=== PATIENT | female | born 1930 | race Caucasian/White ===

== ENCOUNTER 2017-12-29 05:02 | Inpatient (IN) | payer OTHER, MEDICAID ==
[~2017-12-29] VITALS: Ht 137.2 cm; Wt 43.5 kg
[2017-12-29 05:02] VITALS: BP_SYST 139
[2017-12-29] MEDS ORDERED: NACL 0.9% 1,000 ML IV ONE (05:15)
[2017-12-29 05:24] LABS: BASOPHILS # (AUTO) 0.1 K/uL (0.0-0.2); BASOPHILS % (AUTO) 0.9 % (0.0-2.0); EOSINOPHILS % (AUTO) 0.7 % (0.0-4.0); HEMATOCRIT 32.1 % (36-48); HEMOGLOBIN 10.8 g/dL (12.0-16.0); LYMPHOCYTES # (AUTO) 1.2 K/uL (1.0-5.5); LYMPHOCYTES % (AUTO) 20.2 % (20.5-51.5); MEAN CORPUSCULAR HEMOGLOBIN 28 pg (27-31); MEAN CORPUSCULAR HGB CONC 34 % (32-36); MEAN CORPUSCULAR VOLUME 83 fL (79.0-98.0); MONOCYTES # (AUTO) 0.5 K/uL (0.0-1.0); MONOCYTES % (AUTO) 8.8 % (1.7-9.3); NEUTROPHILS # (AUTO) 4.2 K/uL (1.8-7.7); NEUTROPHILS % (AUTO) 69.4 % (40.0-70.0); PLATELET COUNT (AUTO) 349 K/uL (130-430); RED BLOOD CELL COUNT(AUTO) 3.87 MIL/uL (4.2-6.2); RED CELL DISTRIBUTION WIDTH 14.4 % (9.0-15.0); WHITE BLOOD COUNT (AUTO) 6.1 K/uL (4.8-10.8)
[2017-12-29] MEDS ORDERED: DIME50TA35 PO (05:28)
[2017-12-29] MEDS ORDERED: PRED5TAB PO (05:28)
[2017-12-29] MEDS ORDERED: TRAM50TA92 PO (05:28)
[2017-12-29] MEDS ORDERED: PRO40 PO (05:28)
[2017-12-29] MEDS ORDERED: LORA-258 PO (05:28)
[2017-12-29] MEDS ORDERED: LOSA50TA3 PO (05:28)
[2017-12-29 05:36] LABS: ANION GAP 4 (5-15); CALCIUM 10.4 mg/dL (8.4-11.0); CHLORIDE 105 mmol/L (98-107); CREATININE 0.89 mg/dL (0.55-1.30); GLUCOSE 139 mg/dL (70-99); POTASSIUM 3.5 mmol/L (3.5-5.1); SODIUM SERUM 134 mmol/L (136-145); UREA NITROGEN, BLOOD 15 mg/dL (8-21)
[2017-12-29 05:41] LABS: ALANINE AMINOTRANSFERASE 19 U/L (12-78); ALBUMIN 2.8 g/dL (3.4-4.8); ASPARTATE AMINOTRANSFERASE 22 U/L (10-37); TOTAL BILIRUBIN 0.4 mg/dL (0.0-1.0)
[2017-12-29 05:42] LABS: ALCOHOL, BLOOD < 3 mg/dL (<10)
[2017-12-29 05:58] LABS: BILIRUBIN,URINE NEGATIVE (NEGATIVE); BLOOD, URINE NEGATIVE (NEGATIVE); CLARITY/URINE CLEAR (CLEAR); COLOR,URINE YELLOW (YELLOW); GLUCOSE,URINE NEGATIVE (NEGATIVE); KETONES,URINE NEGATIVE (NEGATIVE); LEUKOCYTE ESTERASE ,URINE TRACE (NEGATIVE); NITRITE, URINE NEGATIVE (NEGATIVE); PROTEIN URINE NEGATIVE (NEGATIVE); UROBILINOGEN,URINE 0.2 (0.2-1.0)
[2017-12-29 06:10] LABS: BARBITURATE, URINE NEGATIVE (NEG <=200); BENZODIAZEPINE, URINE NEGATIVE (NEG <=150); CANNABINOID, URINE NEGATIVE (NEG <=50); COCAINE, URINE NEGATIVE (NEG <=150); METHAMPHETAMINES SCREEN,URINE NEGATIVE (NEG <=500); OPIATE, URINE NEGATIVE (NEG <=100); PHENCYCLIDINE SCREEN,URINE NEGATIVE (NEG <=25); UR TRICYCLIC ANTIDEPRESSANTS NEGATIVE (NEG <=300); URINE AMPHETAMINE NEGATIVE (NEG <=500); URINE METHADONE NEGATIVE (NEG <=200); URINE OXYCODONE SCREEN NEGATIVE (NEG <=100); URINE PROPOXYPHENE SCREEN NEGATIVE (NEG <=300)
[2017-12-29 06:14] LABS: BACTERIA,URINE FEW /HPF (None Seen); MUCUS,URINE None Seen /LPF (None Seen); RBC,URINE 0-3 /HPF (0-3)
[2017-12-29] MEDS ORDERED: PIPERACILLIN/TAZO 3.375 GM in NS 50 ML IV ONE (07:15)
[2017-12-29] MEDS ORDERED: PIPERACILLIN/TAZOBACTAM 3.375 GM/VIAL (ZOSYN) IV ONE (07:23)
[2017-12-29] MEDS ORDERED: DILTIAZEM HCL 25 MG/5 ML VIAL IVP ONE (07:30)
[2017-12-29 08:44] VITALS: BP_SYST 142
[2017-12-29] MEDS ORDERED: *LOVENOX 1MG/KG Q24H/PHARMACY XX PRN (10:30)
[2017-12-29] MEDS ORDERED: CARVEDILOL 6.25 MG TABLET (COREG) PO ONE (10:45)
[2017-12-29 10:58] LABS: FREE T4 (FREE THYROXINE) 3.1 ng/dL (0.6-1.6); THYROID STIMULATING HORMONE < 0.01 uIu/mL (0.34-4.82)
[2017-12-29] MEDS ORDERED: ENOXAPARIN SODIUM 60 MG/0.6 ML SYRINGE SUBCUT ONE (11:00)
[2017-12-29 12:30] VITALS: BP_SYST 128
[2017-12-29] MEDS ORDERED: QUEtiapine FUMARATE 25 MG TABLET PO ONE (15:30)
[2017-12-29 16:00] VITALS: BP_SYST 172
[2017-12-29] MEDS ORDERED: LORazepam 2 MG/ML VIAL IVP PRN (17:15)
[2017-12-29] MEDS ORDERED: traMADol HCL HCL 50 MG TABLET (ULTRAM) PO PRN (18:15)
[2017-12-29] MEDS ORDERED: cloNIDine HCL 0.1 MG TABLET PO PRN (18:15)
[2017-12-29] MEDS ORDERED: HALOPERIDOL LACTATE 5 MG/ML VIAL IM PRN (18:30)
[2017-12-29] MEDS ORDERED: cloNIDine HCL 0.1 MG TABLET ONE (18:43)
[2017-12-29] MEDS ORDERED: HALOPERIDOL 1 MG TABLET (HALDOL) PO PRN (19:00)
[2017-12-29 20:00] VITALS: BP_SYST 142
[2017-12-29] MEDS ORDERED: DIMENHYDRINATE 25 MG PO SCH (21:00)
[2017-12-29] MEDS ORDERED: PREDNISONE 5 MG TABLET PO SCH (21:00)
[2017-12-29] MEDS: QUEtiapine FUMARATE 25 MG TABLET PO SCH (21:13)
[2017-12-29] MEDS: CARVEDILOL 6.25 MG TABLET (COREG) PO SCH (21:14)
[2017-12-29] MEDS: methylPREDNISolone SOD SUCC 40 MG/ML VIAL IVP SCH (21:15)
[2017-12-30] VITALS: BP_SYST 151
[2017-12-30] MEDS: LevALBUTEROL HCL 1.25 MG/0.5 ML *CONC.* VIAL.NEB (XOPENEX CONC.) INH SCH ×4 (01:21→19:59)
[2017-12-30 01:29] VITALS: BP_SYST 142
[2017-12-30] MEDS: methylPREDNISolone SOD SUCC 40 MG/ML VIAL IVP SCH ×3 (06:06→21:34)
[2017-12-30 07:14] LABS: BASOPHILS % (AUTO) 0.5 % (0.0-2.0); EOSINOPHILS % (AUTO) 0.5 % (0.0-4.0); HEMATOCRIT 29.6 % (36-48); LYMPHOCYTES # (AUTO) 1.1 K/uL (1.0-5.5); MEAN CORPUSCULAR HEMOGLOBIN 28 pg (27-31); MEAN CORPUSCULAR HGB CONC 34 % (32-36); MEAN CORPUSCULAR VOLUME 84 fL (79.0-98.0); MONOCYTES # (AUTO) 0.7 K/uL (0.0-1.0); MONOCYTES % (AUTO) 10.1 % (1.7-9.3); NEUTROPHILS # (AUTO) 4.8 K/uL (1.8-7.7); NEUTROPHILS % (AUTO) 71.9 % (40.0-70.0); PLATELET COUNT (AUTO) 274 K/uL (130-430); RED BLOOD CELL COUNT(AUTO) 3.52 MIL/uL (4.2-6.2); RED CELL DISTRIBUTION WIDTH 14.2 % (9.0-15.0); WHITE BLOOD COUNT (AUTO) 6.6 K/uL (4.8-10.8)
[2017-12-30 07:48] LABS: ALANINE AMINOTRANSFERASE 15 U/L (12-78); ALBUMIN 2.3 g/dL (3.4-4.8); ANION GAP 8 (5-15); ASPARTATE AMINOTRANSFERASE 21 U/L (10-37); CALCIUM 10.2 mg/dL (8.4-11.0); CHLORIDE 109 mmol/L (98-107); CREATININE 0.65 mg/dL (0.55-1.30); GLUCOSE 106 mg/dL (70-99); POTASSIUM 3.5 mmol/L (3.5-5.1); SODIUM SERUM 140 mmol/L (136-145); THYROID STIMULATING HORMONE < 0.01 uIu/mL (0.34-4.82); TOTAL BILIRUBIN 0.5 mg/dL (0.0-1.0); UREA NITROGEN, BLOOD 13 mg/dL (8-21)
[2017-12-30 08:00] VITALS: BP_SYST 160
[2017-12-30] MEDS ORDERED: ENOXAPARIN SODIUM 60 MG/0.6 ML SYRINGE SUBCUT SCH (09:00)
[2017-12-30] MEDS: CARVEDILOL 6.25 MG TABLET (COREG) PO SCH ×2 (09:22→21:33)
[2017-12-30] MEDS: PANTOPRAZOLE SODIUM 40 MG TAB PO SCH (09:23)
[2017-12-30] MEDS: LOSARTAN POTASSIUM 50 MG TABLET (COZAAR) PO SCH (09:23)
[2017-12-30] MEDS ORDERED: AMOXICILLIN/CLAVULANATE POTASSIUM 875 MG TABLET PO ONE (10:45)
[2017-12-30 12:05] VITALS: BP_SYST 127
[2017-12-30] MEDS: METHIMAZOLE 5 MG TABLET PO SCH ×2 (15:14→21:34)
[2017-12-30 16:05] VITALS: BP_SYST 152
[2017-12-30 20:00] VITALS: BP_SYST 155
[2017-12-30] MEDS: AMOXICILLIN/CLAVULANATE POTASSIUM 875 MG TABLET PO SCH (21:29)
[2017-12-30] MEDS ORDERED: ACETAMINOPHEN 325 MG TABLET PO PRN (21:30)
[2017-12-30] MEDS: QUEtiapine FUMARATE 25 MG TABLET PO SCH (21:33)
[2017-12-31 00:34] VITALS: BP_SYST 156
[2017-12-31] MEDS: LevALBUTEROL HCL 1.25 MG/0.5 ML *CONC.* VIAL.NEB (XOPENEX CONC.) INH SCH ×4 (01:00→20:02)
[2017-12-31] MEDS: methylPREDNISolone SOD SUCC 40 MG/ML VIAL IVP SCH (05:20)
[2017-12-31 07:13] LABS: ANION GAP 14 (5-15); CHLORIDE 102 mmol/L (98-107); CREATININE 0.73 mg/dL (0.55-1.30); GLUCOSE 204 mg/dL (70-99); POTASSIUM 3.8 mmol/L (3.5-5.1); SODIUM SERUM 139 mmol/L (136-145); UREA NITROGEN, BLOOD 16 mg/dL (8-21)
[2017-12-31 07:15] LABS: BASOPHILS % (AUTO) 0.3 % (0.0-2.0); EOSINOPHILS % (AUTO) 0.1 % (0.0-4.0); HEMATOCRIT 33.9 % (36-48); HEMOGLOBIN 11.1 g/dL (12.0-16.0); LYMPHOCYTES # (AUTO) 0.5 K/uL (1.0-5.5); LYMPHOCYTES % (AUTO) 8.9 % (20.5-51.5); MEAN CORPUSCULAR HEMOGLOBIN 28 pg (27-31); MEAN CORPUSCULAR HGB CONC 33 % (32-36); MEAN CORPUSCULAR VOLUME 84 fL (79.0-98.0); MONOCYTES # (AUTO) 0.1 K/uL (0.0-1.0); MONOCYTES % (AUTO) 1.3 % (1.7-9.3); NEUTROPHILS # (AUTO) 4.5 K/uL (1.8-7.7); NEUTROPHILS % (AUTO) 89.4 % (40.0-70.0); PLATELET COUNT (AUTO) 347 K/uL (130-430); RED BLOOD CELL COUNT(AUTO) 4.03 MIL/uL (4.2-6.2); RED CELL DISTRIBUTION WIDTH 14.1 % (9.0-15.0); WHITE BLOOD COUNT (AUTO) 5.1 K/uL (4.8-10.8)
[2017-12-31 07:55] VITALS: BP_SYST 159
[2017-12-31] MEDS ORDERED: CARVEDILOL 6.25 MG TABLET (COREG) PO ONE (09:30)
[2017-12-31] MEDS ORDERED: ASPIRIN 81 MG TAB.CHEW PO ONE (09:30)
[2017-12-31] MEDS: AMOXICILLIN/CLAVULANATE POTASSIUM 875 MG TABLET PO SCH ×2 (09:36→20:20)
[2017-12-31] MEDS: LOSARTAN POTASSIUM 50 MG TABLET (COZAAR) PO SCH (09:36)
[2017-12-31] MEDS: PANTOPRAZOLE SODIUM 40 MG TAB PO SCH (09:36)
[2017-12-31] MEDS ORDERED: LIDOCAINE 1% 10 MG/ML, 50 ML MDV INJ ONE (10:00)
[2017-12-31] MEDS ORDERED: LIDOCAINE 1%, 20 ML MDV 0 ML ONE (11:25)
[2017-12-31] MEDS: METHIMAZOLE 5 MG TABLET PO SCH ×2 (12:17→20:23)
[2017-12-31 16:05] VITALS: BP_SYST 149
[2017-12-31 16:07] LABS: TOTAL IRON BIND. CAPACITY 278 ug/dL (250-450)
[2017-12-31 19:42] VITALS: BP_SYST 150
[2017-12-31] MEDS: QUEtiapine FUMARATE 25 MG TABLET PO SCH (20:21)
[2017-12-31] MEDS: CARVEDILOL 6.25 MG TABLET (COREG) PO SCH (20:23)
[2018-01-01 00:06] LABS: BODY FLUID SOURCE/ TYPE PLEURAL; SOURCE/TYPE ,BODY FLUID PLEURAL
[2018-01-01 00:07] LABS: APPEARANCE,SPUN,BODY FLUID CLEAR (CLEAR); BF APPEARANCE UNSPUN BLOODY (CLEAR); BODY FLUID COLOR RED (LT YELLOW); BODY FLUID TOTAL VOLUME 470 mL; WBC, BODY FLUID 37 /uL
[2018-01-01 00:08] LABS: EOSINOPHIL, BODY FLUID 0 %; LYMPHOCYTES, BODY FLUID 35 %; MONOCYTES,BODY FLUID 50 %; NEUTROPHIL, BODY FLUID 15 %; RBC, BODY FLUID 16667 /uL
[2018-01-01 00:11] LABS: BODY FLUID GLUCOSE 229 mg/dL
[2018-01-01 00:12] LABS: BODY FLUID TOTAL PROTEIN 3.8 g/dL
[2018-01-01 00:42] VITALS: BP_SYST 133
[2018-01-01] MEDS: LevALBUTEROL HCL 1.25 MG/0.5 ML *CONC.* VIAL.NEB (XOPENEX CONC.) INH SCH ×4 (01:20→19:32)
[2018-01-01 06:59] LABS: BASOPHILS % (AUTO) 0.2 % (0.0-2.0); EOSINOPHILS % (AUTO) 0.1 % (0.0-4.0); HEMATOCRIT 30.3 % (36-48); HEMOGLOBIN 10.2 g/dL (12.0-16.0); LYMPHOCYTES % (AUTO) 11.2 % (20.5-51.5); MEAN CORPUSCULAR HEMOGLOBIN 28 pg (27-31); MEAN CORPUSCULAR HGB CONC 34 % (32-36); MEAN CORPUSCULAR VOLUME 83 fL (79.0-98.0); MONOCYTES # (AUTO) 0.6 K/uL (0.0-1.0); MONOCYTES % (AUTO) 6.6 % (1.7-9.3); NEUTROPHILS # (AUTO) 7.6 K/uL (1.8-7.7); NEUTROPHILS % (AUTO) 81.9 % (40.0-70.0); PLATELET COUNT (AUTO) 299 K/uL (130-430); RED BLOOD CELL COUNT(AUTO) 3.64 MIL/uL (4.2-6.2); RED CELL DISTRIBUTION WIDTH 14.1 % (9.0-15.0); WHITE BLOOD COUNT (AUTO) 9.2 K/uL (4.8-10.8)
[2018-01-01 07:21] LABS: ANION GAP 7 (5-15); CALCIUM 9.6 mg/dL (8.4-11.0); CHLORIDE 110 mmol/L (98-107); CREATININE 0.61 mg/dL (0.55-1.30); FREE T4 (FREE THYROXINE) 3.1 ng/dL (0.6-1.6); GLUCOSE 102 mg/dL (70-99); POTASSIUM 3.3 mmol/L (3.5-5.1); SODIUM SERUM 142 mmol/L (136-145); UREA NITROGEN, BLOOD 18 mg/dL (8-21)
[2018-01-01 08:00] VITALS: BP_SYST 137
[2018-01-01] MEDS: AMOXICILLIN/CLAVULANATE POTASSIUM 875 MG TABLET PO SCH ×2 (09:02→20:51)
[2018-01-01] MEDS: ASPIRIN 81 MG TAB.CHEW PO SCH (09:03)
[2018-01-01] MEDS: PANTOPRAZOLE SODIUM 40 MG TAB PO SCH (09:03)
[2018-01-01] MEDS: LOSARTAN POTASSIUM 50 MG TABLET (COZAAR) PO SCH (09:04)
[2018-01-01] MEDS: METHIMAZOLE 5 MG TABLET PO SCH (09:04)
[2018-01-01] MEDS: CARVEDILOL 6.25 MG TABLET (COREG) PO SCH ×2 (09:06→20:50)
[2018-01-01 12:11] LABS: FOLATE (FOLIC ACID) 6.8 ng/mL (>3.0)
[2018-01-01] MEDS ORDERED: POTASSIUM CHLORIDE 20 MEQ TAB.PRT.SR PO ONE (12:45)
[2018-01-01 12:58] VITALS: BP_SYST 113
[2018-01-01 17:04] VITALS: BP_SYST 122
[2018-01-01 19:25] VITALS: BP_SYST 129
[2018-01-01] MEDS: QUEtiapine FUMARATE 25 MG TABLET PO SCH (20:51)
[2018-01-02 00:20] VITALS: BP_SYST 113
[2018-01-02] MEDS: LevALBUTEROL HCL 1.25 MG/0.5 ML *CONC.* VIAL.NEB (XOPENEX CONC.) INH SCH ×3 (01:30→13:00)
[2018-01-02 07:13] VITALS: BP_SYST 113
[2018-01-02 07:18] LABS: BASOPHILS % (AUTO) 0.3 % (0.0-2.0); EOSINOPHILS # (AUTO) 0.1 K/uL (0.0-0.4); EOSINOPHILS % (AUTO) 1.7 % (0.0-4.0); HEMOGLOBIN 10.2 g/dL (12.0-16.0); LYMPHOCYTES # (AUTO) 1.4 K/uL (1.0-5.5); LYMPHOCYTES % (AUTO) 26.4 % (20.5-51.5); MEAN CORPUSCULAR HEMOGLOBIN 28 pg (27-31); MEAN CORPUSCULAR HGB CONC 33 % (32-36); MEAN CORPUSCULAR VOLUME 85 fL (79.0-98.0); MONOCYTES # (AUTO) 0.7 K/uL (0.0-1.0); MONOCYTES % (AUTO) 13.3 % (1.7-9.3); NEUTROPHILS # (AUTO) 2.9 K/uL (1.8-7.7); NEUTROPHILS % (AUTO) 58.3 % (40.0-70.0); PLATELET COUNT (AUTO) 318 K/uL (130-430); RED BLOOD CELL COUNT(AUTO) 3.66 MIL/uL (4.2-6.2); RED CELL DISTRIBUTION WIDTH 14.2 % (9.0-15.0); WHITE BLOOD COUNT (AUTO) 5.1 K/uL (4.8-10.8)
[2018-01-02 08:00] VITALS: BP_SYST 118
[2018-01-02] MEDS ORDERED: METHIMAZOLE 5 MG TABLET PO SCH (09:00)
[2018-01-02] MEDS: AMOXICILLIN/CLAVULANATE POTASSIUM 875 MG TABLET PO SCH (09:54)
[2018-01-02] MEDS: PANTOPRAZOLE SODIUM 40 MG TAB PO SCH (09:54)
[2018-01-02] MEDS: CARVEDILOL 6.25 MG TABLET (COREG) PO SCH (09:56)
[2018-01-02] MEDS: ASPIRIN 81 MG TAB.CHEW PO SCH (09:56)
[2018-01-02] MEDS: LOSARTAN POTASSIUM 50 MG TABLET (COZAAR) PO SCH (09:57)
[2018-01-02] MEDS ORDERED: COR6.25 PO (11:43)
[2018-01-02] MEDS ORDERED: METH5TAB78 PO (11:43)
[2018-01-02 11:44] LABS: ANION GAP 9 (5-15); CALCIUM 10.1 mg/dL (8.4-11.0); CHLORIDE 111 mmol/L (98-107); CREATININE 0.71 mg/dL (0.55-1.30); GLUCOSE 91 mg/dL (70-99); POTASSIUM 3.9 mmol/L (3.5-5.1); SODIUM SERUM 143 mmol/L (136-145); UREA NITROGEN, BLOOD 16 mg/dL (8-21)
[2018-01-02] MEDS ORDERED: SER25 PO (11:44)
[2018-01-02 12:00] VITALS: BP_SYST 123
[2018-01-02 16:00] VITALS: BP_SYST 115
[2018-01-02 18:44] VITALS: BP_SYST 115
== END 2018-01-02 19:25 | disposition hospice, home (50) | DRG 308 ==
LOC: SED 05:02 → STU 07:55
PROVIDERS: ADMIT Internal Medicine; ATTEND Internal Medicine
PROC: 0W9B3ZZ Drainage of Left Pleural Cavity, Percutaneous Approach (ICD-10-PCS; principal; 2017-12-31)
DX: I48.0 Paroxysmal atrial fibrillation (principal); G93.49 Other encephalopathy; G93.41 Metabolic encephalopathy; N39.0 Urinary tract infection, site not specified; C78.00 Secondary malignant neoplasm of unspecified lung; C64.9 Malignant neoplasm of unspecified kidney, except renal pelvis; J90 Pleural effusion, not elsewhere classified; D68.59 Other primary thrombophilia; E44.1 Mild protein-calorie malnutrition; R44.1 Visual hallucinations; F03.90 Unspecified dementia, unspecified severity, without behavioral disturbance, psychotic disturbance, mood disturbance, and anxiety; E87.6 Hypokalemia; D64.9 Anemia, unspecified; I10 Essential (primary) hypertension; J44.9 Chronic obstructive pulmonary disease, unspecified; F41.9 Anxiety disorder, unspecified; K21.9 Gastro-esophageal reflux disease without esophagitis; G47.00 Insomnia, unspecified; E05.90 Thyrotoxicosis, unspecified without thyrotoxic crisis or storm; I25.10 Atherosclerotic heart disease of native coronary artery without angina pectoris; I70.90 Unspecified atherosclerosis; D63.8 Anemia in other chronic diseases classified elsewhere; Z79.899 Other long term (current) drug therapy; Z68.23 Body mass index [BMI] 23.0-23.9, adult
CPT/HCPCS: 32555; 36415; 70450-TC; 71045; 71250-TC; 76536-TC; 76604; 80048; 80053; 80307; 81000-TC; 82272; 82607; 82728; 82746; 82947-TC; 83540-TC; 83550-TC; 83605; 83880; 84157-TC; 84439; 84443-TC; 84480; 84484; 85025; 87040-TC; 87070-TC; 87086; 87101; 87116; 88108; 88305; 89051-TC; 89060-TC; 93005; 93306; 94640; 94760; 96361; 96365; 96375; 97110-GP; 97116-GP; 97530-GP; 99285; C1729; G0482; J1030; J1650; J2001; J2060; J2543; J3490; J7612